=== PATIENT | female | born 1950 | race Caucasian/White ===

== ENCOUNTER → 2023-04-25 | Outpatient (CLI) | payer MEDICARE, BC, SELFPAY ==
[2023-04-25 12:28] LABS: Absolute Neutrophil Count 4.1 X10^3/uL (2.0-7.7); Basophil# 0.09 X10^3/uL; Basophil% 1.2 % (0-1); Eosinophil# 0.22 X10^3/uL; Hematocrit 42.9 % (37-47); Hemoglobin 13.7 g/dL (12.0-15.0); Lymphocyte % 30.1 % (19-41); Mean Corp Hgb Conc 31.9 g/dL (32-36); Mean Corpuscular Hgb 29.5 pg (27.0-32.0); Mean Corpuscular Volume 92.3 fL (81-99); Mean Platelet Vol. 9.9 fl (6.2-12.0); Monocyte# 0.73 X10^3/uL; NRBC Flagged by Analyzer 0 % (0-5); Neutrophil # 4.05 X10^3/uL (2.7-7.7); Neutrophil % 55.3 % (47-70); Platelet Count 294 K/mm3 (150-450); RBC Distribution Width CV 13.3 % (11.6-14.6); Red Blood Count 4.65 M/mm3 (4.2-5.4); White Blood Count 7.3 K/mm3 (4.4-11.0)
[2023-04-25 12:37] LABS: Vitamin B12 375 pg/mL (211-911)
[2023-04-25 13:57] LABS: ALB/GLOB Ratio 1.1 RATIO (0.9-2.4); AST(SGOT) 23 U/L (15-37); Alanine Aminotransfer ALT/SGPT 28 U/L (13-56); Albumin, Serum 3.8 g/dL (3.2-5.0); Alkaline Phosphatase 64 U/L (45-117); Anion Gap 5 (5-15); BUN 15 mg/dL (7-18); BUN/Creat Ratio 18.1 RATIO (10-20); Calcium,Total 9.2 mg/dL (8.5-10.1); Chloride 105 mmol/L (98-107); Creatinine, Serum 0.83 mg/dL (0.55-1.02); EST Glomerular Filtration Rate 72 mL/min (>60); Est Glom Filt Rate - Afr Amer 87 mL/min (>60); Ferritin 72 ng/mL (8-252); Globulin 3.5 g/dL (2.2-4.2); Glucose 107 mg/dL (74-106); Potassium 4.2 mmol/L (3.5-5.1); Protein, Total 7.3 g/dL (6.4-8.2); Sodium Level 138 mmol/L (136-145); T4 Free Direct 0.84 ng/dL (0.76-1.46); Thyroid Stim Hormone (TSH) 1.57 uIU/mL (0.358-3.74)
[2023-04-29 13:07] LABS: Anti-Nuclear Antibody Test Negative (.); Anti-dsDNA Ab 1 IU/mL (0-9)
[2023-05-02 14:09] LABS: Zinc, Plasma or Serum 65 ug/dL (44-115)
== END | disposition home or self-care (01) ==
LOC: MTLAB 10:24
PROVIDERS: PCP Nurse Practitioner Family; Referring Provider Physician Assistant; Visit Provider Physician Assistant
DX: L66.8 Other cicatricial alopecia (principal)
CPT/HCPCS: 36415; 80053; 82607; 82728; 82746; 84439; 84443; 84630; 85025; 86038; 86225

== ENCOUNTER 2023-06-10 14:15 | Outpatient (RCR) | payer SELFPAY | END 2023-06-16 23:59 | LOC: NS 14:15 | PROVIDERS: PCP Nurse Practitioner Family; Referring Provider Orthopaedic Surgery; Visit Provider Orthopaedic Surgery | DX: Z71.3 Dietary counseling and surveillance (principal); E66.3 Overweight; M19.012 Primary osteoarthritis, left shoulder; M75.42 Impingement syndrome of left shoulder; Z68.29 Body mass index [BMI] 29.0-29.9, adult | CPT/HCPCS: 97802 ==

== ENCOUNTER 2023-07-08 11:03 | Outpatient (RCR) | payer SELFPAY | END 2023-07-16 23:59 | LOC: NS 11:03 | PROVIDERS: PCP Nurse Practitioner Family; Referring Provider Orthopaedic Surgery; Visit Provider Orthopaedic Surgery | DX: Z71.3 Dietary counseling and surveillance (principal); E66.3 Overweight; M19.012 Primary osteoarthritis, left shoulder; M75.42 Impingement syndrome of left shoulder; Z68.29 Body mass index [BMI] 29.0-29.9, adult | CPT/HCPCS: 97803 ==

== ENCOUNTER 2023-12-15 01:11 | Emergency (ER) | payer MEDICARE, BC, SELFPAY ==
[2023-12-15 01:12] VITALS: BP 136/69; PULSE 70; RESP 16; O2SAT 95
[2023-12-15 01:13] VITALS: BP 136/69; PULSE 66; RESP 16; TEMP 36.8; O2SAT 98; BMI 29.0
--- NOTE | 2023-12-15 01:57 | EKG12_ITS ---
Test Reason : CP Blood Pressure : / mmHG Vent. Rate : 073 BPM Atrial Rate : 073 BPM P-R Int : 142 ms QRS Dur : 086 ms QT Int : 424 ms P-R-T Axes : 036 -02 021 degrees QTc Int : 467 ms Normal sinus rhythm Normal ECG Confirmed by CHIP HART, CARLOS ([id number]), videotape editor CHARO MCKINNEY ([id number]) on 12/17/2023 6:29:08 AM Referred By: Confirmed By:CARLOS SAUNDERS MD
[2023-12-15 02:06] LABS: Bacteria 0 SEEN /hpf (None Seen); Mucous, Urine 0 SEEN /hpf (<or=2+); Red Blood Cells-Urine 0 SEEN /hpf (0-5); Squamous Epithelial Cells - UA 0 SEEN /hpf (5-10); White Blood Cells 0 SEEN /hpf (0-5)
[2023-12-15 02:07] LABS: Absolute Lymphocyte Count 3.32 X10^3/uL (0.83-4.51); Absolute Neutrophil Count 3.5 X10^3/uL (2.0-7.7); Basophil% 1.2 % (0-1); Color, Urine Yellow (Yellow); Eosinophil# 0.22 X10^3/uL; Eosinophils% 2.7 % (0-5); Glucose, Dipstick Normal (Normal); Hematocrit 39.8 % (37-47); Ketone-Dipstick Negative (Negative); Leukocyte Esterase-Dipstick 25 /ul (Negative); Lymphocyte # 3.32 X10^3/ul (0.83-4.51); Lymphocyte % 40.3 % (19-41); Mean Corp Hgb Conc 32.7 g/dL (32-36); Mean Corpuscular Hgb 29.5 pg (27.0-32.0); Mean Corpuscular Volume 90.5 fL (81-99); Mean Platelet Vol. 10.4 fl (6.2-12.0); Monocyte% 13.4 % (0-10); NRBC Flagged by Analyzer 0 % (0-5); Neutrophil # 3.46 X10^3/uL (2.7-7.7); Nitrite-Dipstick Negative (Negative); Occult Blood-Urine Negative /ul (Negative); Platelet Count 269 K/mm3 (150-450); Protein-Dipstick Negative (Negative); RBC Distribution Width CV 13.1 % (11.6-14.6); RBC Distribution Width SD 43.1 fl (35.1-43.9); Urine Bilirubin Dipstick Negative (Negative); Urine Clarity Clear (Clear); Urine Urobilinogen Normal (Normal); Urine pH 6.5 (5.0 - 8.0); White Blood Count 8.2 K/mm3 (4.4-11.0)
[2023-12-15] MEDS: Ketorolac 15 MG/ML Vial IV (02:07)
[2023-12-15 02:12] VITALS: BP 119/64; PULSE 63; RESP 16; O2SAT 98
--- NOTE | 2023-12-15 02:15 | RAD_ITS ---
EXAM: XR CHEST, 2 VIEWS CLINICAL INDICATION: chest pain chest pain TECHNIQUE: Frontal and lateral views of the chest. COMPARISON: No relevant prior studies available. FINDINGS: LUNGS AND PLEURAL SPACES: Unremarkable. No consolidation or edema. No pneumothorax. No effusion. HEART: Unremarkable. Cardiac silhouette not enlarged. MEDIASTINUM: There are surgical clips which project over the anterior mediastinum. BONES/JOINTS: Unremarkable. No acute fracture. SOFT TISSUES: Unremarkable. RAD/Chest PA and Lateral IMPRESSION: No acute findings in the chest. Electronically Signed: Robert Crawford MD at 3:06 EDT Reading Location ID and State: [facility] / [place] , Service support ,
[2023-12-15 02:18] LABS: D-Dimer Quantitative (DVT/PE) 0.44 FEU/ug/m (0.27-0.49)
[2023-12-15 02:25] LABS: AST(SGOT) 22 U/L (15-37); Alanine Aminotransfer ALT/SGPT 26 U/L (13-56); Alkaline Phosphatase 56 U/L (45-117); Anion Gap 6 (5-15); BUN 21 mg/dL (7-18); Bilirubin, Direct 0.15 mg/dL (0.00-0.30); Calcium,Total 9.1 mg/dL (8.5-10.1); Chloride 106 mmol/L (98-107); Creatinine, Serum 0.91 mg/dL (0.55-1.02); EST Glomerular Filtration Rate 64 mL/min (>60); Est Glom Filt Rate - Afr Amer 78 mL/min (>60); Estimated Creatinine Clearance 61.14 ml/min; Glucose 103 mg/dL (74-106); Lipase 75 U/L (13-75); Magnesium 2.2 mg/dL (1.6-2.6); Potassium 3.6 mmol/L (3.5-5.1); Sodium Level 140 mmol/L (136-145); Troponin-I HS 5 pg/mL (3.0-54.0)
[2023-12-15 03:00] VITALS: BP 119/63; PULSE 75; RESP 14; O2SAT 95
[2023-12-15 04:00] VITALS: BP 182/91; PULSE 94; RESP 18; O2SAT 94
[2023-12-15 04:16] LABS: Troponin-I HS 5 pg/mL (3.0-54.0)
--- NOTE | 2023-12-15 04:31 | EDS_ITS ---
HPI History of Present Illness Chief Complaint: Chest Pain Informant: patient and spouse/S.O. Narrative Narrative: Patient is a 72-year-old female with past medical history of interstitial lung disease and hyperlipidemia. She was recently started on Nexletol for her elevated cholesterol as she cannot tolerate a statin medication. She states this evening around 10:00 she developed a abnormal painful sensation along the right ribs and slightly along the sternum that felt more spasmy in nature. She states that there is no associated nausea vomiting diaphoresis or shortness of breath. She denies any recent trauma or excessive activity. She denies any recent travel surgery or history of DVT/PE. She states that there is no dysuria or hematuria. However because the pain was persisting throughout the evening she did not feel comfortable going to sleep as she had concerned this could be cardiac and therefore comes in for evaluation [facility] Medical History (Updated 12/15/23 @ 06:[address] Clayton Alvarez, DO) Lichen sclerosus of vulva Interstitial lung disease Intermittent asthma with allergic rhinitis White matter disease Lung nodule IBS (irritable bowel syndrome) Seasonal allergies Melanoma Hyperlipemia Home Medications ?Medication ?Instructions ?Recorded ?Last Taken ?Type albuterol sulfate 90 mcg/actuation 2 puff inhalation Q4H PRN PRN 12/15/23 12/15/23 History aerosol inhaler shortness of breath or wheezing azelastine 137 mcg (0.1 %) nasal 2 spray intranasal BID PRN 12/15/23 Unknown History spray bempedoic acid 180 mg tablet 180 mg PO DAILY 12/15/23 Unknown History (Nexletol) calcium carbonate (Calcium 600) 600 mg PO DAILY 12/15/23 Unknown History clobetasol 0.05 % topical ointment 1 applic topical BID 12/15/23 Unknown History estradiol 0.01% (0.1 mg/gram) 1 appful vaginal QHS 12/15/23 Unknown History vaginal cream lifitegrast 5 % eye drops in a 1 drp ophthalmic (eye) BID 12/15/23 Unknown History dropperette (Xiidra) multivitamin 1 tab PO DAILY 12/15/23 Unknown History omega 2-gbn-vki-fish oil 1,200 mg 1 cap PO BID 12/15/23 Unknown History (144 mg-216 mg) capsule (Fish Oil) Allergy/AdvReac Type Severity Reaction Status Date / Time acetaminophen (From Percocet) Allergy intolerance Verified 12/15/23 01:25 ampicillin Allergy Hives Verified 12/15/23 01:25 oxycodone (From Percocet) Allergy intolerance Verified 12/15/23 01:25 Sulfa (Sulfonamide Allergy Hives Verified 12/15/23 01:25 Antibiotics) atorvastatin AdvReac intolerance Verified 12/15/23 01:25 codeine AdvReac intolerance Verified 12/15/23 01:25 nitrofurantoin AdvReac intolerance Verified 12/15/23 01:25 Penicillins AdvReac Hives Verified 12/15/23 01:25 Surgical History (Updated 12/15/23 @ 01:34 by Lizbeth Joshi) History of total right knee replacement History of tonsillectomy and adenoidectomy Hx of hysterectomy Social History Smoking Status: Never smoker ROS ROS ED Constitutional Constitutional ED: Denies chills or fever(s) Eyes Eyes: Denies change in vision ENT ENT ED: Denies sore throat Cardiovascular Cardiovascular: Reports chest pain; Denies palpitations or racing heartbeat Respiratory/Chest Respiratory/Chest: Denies cough or dyspnea Gastrointestinal Gastrointestinal: Reports abdominal pain; Denies diarrhea, nausea or vomiting Genitourinary Genitourinary ED: Denies dysuria or hematuria Musculoskeletal Musculoskeletal: Denies back pain or myalgias Integumentary Denies Abrasions or rash Neurologic Neurologic: Denies headache(s) Hematologic/Lymphatic Hematologic/Lymphatic: Denies easy bleeding or easy bruising EXAM Physical Exam Const Vital Signs: 12/15/23 01:12 12/15/23 01:13 12/15/23 01:30 Temperature 98.3 F Temperature Source Oral Pulse Rate 70 66 Respiratory Rate 16 16 Respiratory Effort Normal Non-Labored Respiratory Pattern Normal Blood Pressure 136/69 H 136/69 H Blood Pressure Mean 91 91 Pulse Ox 95 98 Oxygen Delivery Method Room Air Room Air 12/15/23 01:30 12/15/23 02:12 12/15/23 03:00 Temperature Temperature Source Pulse Rate 63 75 Respiratory Rate 16 14 Respiratory Effort Normal Non-Labored Respiratory Pattern Normal Blood Pressure 119/64 119/63 Blood Pressure Mean 82 81 Pulse Ox 98 95 Oxygen Delivery Method Room Air Room Air 12/15/23 04:00 12/15/23 04:32 Temperature 97.8 F Temperature Source Pulse Rate 94 71 Respiratory Rate 18 16 Respiratory Effort Respiratory Pattern Blood Pressure 182/91 H 112/65 Blood Pressure Mean 121 80 Pulse Ox 94 94 Oxygen Delivery Method Room Air Positive well nourished and well developed General Appearance ED: well developed; Negative for pallor HEENT HEENT Narrative: Normocephalic atraumatic Eyes PERRL and EOMs intact bilaterally General Eye ED: Negative for scleral icterus Neck supple and no JVD Chest Wall Chest Narrative: There is reproducible pain with palpation along the right anterior lateral chest wall mainly in the intercostal space of rib regions 4-6 without bony deformity or crepitance Resp normal respiratory effort and clear to auscultation bilaterally Cardio regular rate and regular rhythm Rate: other Other Details: Heart is regular rate and rhythm without murmurs rubs or gallop Radial and carotid pulses are equal and symmetric GI normal to inspection, nondistended, normoactive bowel sounds, non-tender, non- distended and no masses GI Narrative: No voluntary guarding or rigidity or pulsatile mass Auscultation: normoactive bowel sounds Palpation: soft Back/Spine no CVA tenderness Extremity normal to inspection Extremity Narrative: No asymmetric edema no pitting edema negative Homans' sign bilaterally Neuro oriented x3, CN's II-XII intact bilaterally and no sensory deficits noted Sensorium / Orientation: alert Motor Exam: strength 5/5 throughout Psych mental status grossly normal Skin no rashes or lesions noted Skin Narrative: No overlying soft tissue changes to suggest trauma or infection General Skin Exam: Negative for jaundice or pallor MDM MDM MDM Narrative Medical decision making narrative: Patient arrived to the ER in no acute distress and reported a atypical chest pain. The pain is more along the chest wall and is reproducible in nature but based on her advanced age and history of hyperlipidemia there is concern this could be acute coronary syndrome versus cardiac dysrhythmia versus PE versus dissection versus abdominal pathology such as biliary colic acute cholecystitis or pancreatitis. There is also concern potential lung pathology such as pneumonia or pneumothorax. Secondary to this basic labs were obtained. Patient's initial and delta troponin were normal and her EKG is normal sinus as well and this goes against acute coronary syndrome or cardiac dysrhythmia. D- dimer is negative going against PE or dissection. Lipase is normal going against pancreatitis and her liver enzymes are not elevated going against a biliary colic or acute cholecystitis. Chest x-ray also revealed no signs of acute lung pathology. Therefore at this time with overall negative workup I do not feel there is need for further evaluation in the ER and the patient is otherwise safe for discharge History & Record Review Discussion w/independent historian: Patient and Significant other Lab Data Attestation: I reviewed the patient's lab results. Labs: Laboratory Results - last 24 hr 12/15/23 12/15/23 01:50 03:51 WBC 8.2 RBC 4.40 Hgb 13.0 Hct 39.8 MCV 90.5 MCH 29.5 MCHC 32.7 RDW Std Deviation 43.1 RDW Coeff of Helga 13.1 Plt Count 269 MPV 10.4 Immature Gran % (Auto) 0.400 Neut % (Auto) 42.0 L Lymph % (Auto) 40.3 O[place]o % (Auto) 13.4 H Eos % (Auto) 2.7 Baso % (Auto) 1.2 H Absolute Neuts (auto) 3.5 Absolute Lymphs (auto) 3.32 Nucleated RBC % 0 D-Dimer Quant (PE/DVT) 0.44 Sodium 140 Potassium 3.6 Chloride 106 Carbon Dioxide 27.0 Anion Gap 6 BUN 21 H Creatinine 0.91 Estim Creat Clear Calc 61.14 Est GFR (MDRD) Af Amer 78 Est GFR (MDRD) Non-Af 64 BUN/Creatinine Ratio 23.0 H Glucose 103 Calcium 9.1 Magnesium 2.2 Total Bilirubin 0.70 Direct Bilirubin 0.15 AST 22 ALT 26 Alkaline Phosphatase 56 Troponin I High Sens 5 5 Total Protein 7.0 Albumin 4.0 Globulin 3.0 Lipase 75 Urine Color Yellow Urine Clarity Clear Urine pH 6.5 Ur Specific [place] 1.010 Urine Protein Negative Urine Glucose (UA) Normal Urine Ketones Negative Urine Occult Blood Negative Urine Nitrite Negative Urine Bilirubin Negative Urine Urobilinogen Normal Ur Leukocyte Esterase 25 H Urine RBC 0 SEEN Urine WBC 0 SEEN Ur Squamous Epith Cells 0 SEEN Urine Bacteria 0 SEEN Urine Mucus 0 SEEN Radiography Diagnostic Testing: Clinical Impression(s) from Imaging Studies Chest X-Ray 12/15/23 02:15 IMPRESSION: No acute findings in the chest. Electronically Signed: Robert Crawford MD at 3:06 EDT , 2 view chest x-ray as interpreted by the emergency medicine physician reveals no acute infiltrate pneumothorax pleural effusion or widening of the mediastinum Discharge Plan Triage Chief Complaint: Chest Pain Other Complaint: Dizziness Fatigue ED Provider: Clayton Alvarez Dx/Rx/DC Orders Clinical Impression: Nonspecific chest pain, Hyperlipidemia, Interstitial lung disease Instructions: ED Chest Pain, Uncertain Cause Prescriptions: No Action albuterol sulfate 90 mcg/actuation HFA aerosol inhaler 2 puff inhalation Q4H PRN PRN (Reason: shortness of breath or wheezing) Nexletol 180 mg tablet 180 mg PO DAILY calcium carbonate [Calcium 600] 600 mg calcium (1,500 mg) tablet 600 mg PO DAILY estradiol 0.01 % (0.1 mg/gram) cream 1 appful vaginal QHS clobetasol 0.05 % ointment 1 applic TOPICAL BID azelastine 137 mcg (0.1 %) spray,non-aerosol 2 spray INTRANASAL BID PRN Xiidra 5 % dropperette 1 drp ophthalmic (eye) BID multivitamin Tablet 1 tab PO DAILY omega 2-uym-one-fish oil [Fish Oil] 1,200 (144-216) mg capsule 1 cap PO BID Primary Care Provider: Cuca Marsh Referrals: Cuca Marsh, [employer] [employer] [Primary Care Provider] - Activity Restrictions/Additional Instructions: Please follow-up with your family doctor and/or tack driller for repeat evaluation. Discussed with them if they wanted to continue the Nexletol as approximate 5% of people can have muscle spasms with this and your workup tonight does indicate more of a muscular tension and spasm as a cause of your chest discomfort than any true infectious or cardiac cause. Return to the ER should you have any further concern Print Language: Maltese Disposition Disposition: Home, Self Care Discharge Date/Time: 12/15/23 04:54
[2023-12-15 04:32] VITALS: BP 112/65; PULSE 71; RESP 16; TEMP 36.6; O2SAT 94
== END 2023-12-15 04:54 | disposition home or self-care (01) ==
PROVIDERS: Emergency Provider Emergency Medicine; PCP Nurse Practitioner Family; Visit Provider Emergency Medicine
DX: R07.89 Other chest pain (principal); J84.9 Interstitial pulmonary disease, unspecified; E78.00 Pure hypercholesterolemia, unspecified; Z79.899 Other long term (current) drug therapy
CPT/HCPCS: 71046; 80048; 80076; 81001; 83690; 83735; 84484; 85025; 85379; 93005; 96374; 99285; A4216

== ENCOUNTER 2024-01-28 09:00 | Outpatient (RCR) | payer MEDICARE, BC, SELFPAY | END 2024-01-28 19:00 | disposition home or self-care (01) | LOC: PT 09:00 | PROVIDERS: PCP Nurse Practitioner Family; Referring Provider Nurse Practitioner Women's Health; Visit Provider Nurse Practitioner Women's Health | DX: M76.822 Posterior tibial tendinitis, left leg (principal) | CPT/HCPCS: 97035; 97110; 97162; 97530 ==

== ENCOUNTER → 2024-06-15 | Outpatient (CLI) | payer MEDICARE, BC, SELFPAY ==
[2024-06-15 18:29] LABS: CRP 4.73 mg/L (0.0-3.0)
[2024-06-17 15:08] LABS: Endomysial Antibody IgA Negative (Negative); Immunoglobulin A 217 mg/dL (64-422); t-Transglutaminase IgA <2 U/mL (0-3)
== END | disposition home or self-care (01) ==
LOC: MTLAB 16:06
PROVIDERS: PCP Nurse Practitioner Family; Referring Provider Internal Medicine Gastroenterology; Visit Provider Internal Medicine Gastroenterology
DX: R10.9 Unspecified abdominal pain (principal)
CPT/HCPCS: 36415; 82784; 83516; 86140; 86255